=== PATIENT | male | born 1955 | race Native Hawaiian/Other Pacific Islander ===

== ENCOUNTER 2017-11-14 11:13 | Outpatient (CLI) | payer OTHER ==
[2017-11-14 11:36] LABS: PLATELET COUNT 322 K/uL (142-355)
[2017-11-14 11:40] LABS: POTASSIUM 3.8 mmol/L (3.6-5.2)
== END 2017-11-14 19:56 | disposition home or self-care (01) ==
LOC: LABW 11:13
PROVIDERS: Physician Assistant Medical
DX: E11.9 Type 2 diabetes mellitus without complications (principal); F41.8 Other specified anxiety disorders
CPT/HCPCS: 36415; 80053; 83036; 85027